=== PATIENT | female | born 1980 | race African-American/Black ===

== ENCOUNTER 2019-06-28 08:26 | Inpatient (IN) | payer OTHER ==
[2019-06-14 15:20] VITALS: BMI 38.0
[2019-06-28] MEDS ORDERED: MIDAZOLAM HCL 2 MG/2 ML SINGLE DOSE VIAL ONE (08:34)
[2019-06-28] MEDS ORDERED: BUPIVACAINE HCL/PF 0.5% (5 MG/ML) 30 ML VIAL IJ ONE (08:34)
[2019-06-28] MEDS ORDERED: DEXAMETHASONE SOD PHOSPHATE/PF 10 MG/ML SDV ONE (08:34)
[2019-06-28] MEDS ORDERED: BUPIVACAINE HCL/PF 2.5 MG/ML - 30 ML VIAL IJ ONE (08:41)
[2019-06-28] MEDS ORDERED: oxyCODONE HCL 5 MG TABLET PO PRN (08:46)
[2019-06-28] MEDS ORDERED: ONDANSETRON 4 MG/2 ML VIAL IVPUSH PRN ×2 (08:46→10:57)
[2019-06-28] MEDS ORDERED: PROMETHAZINE HCL 25 MG/1 ML VIAL IVPUSH PRN (08:46)
[2019-06-28] MEDS ORDERED: ROCURONIUM BROMIDE 50 MG/5 ML SYRINGE ONE (09:22)
[2019-06-28] MEDS ORDERED: PROPOFOL 20 ML ONE (09:22)
[2019-06-28] MEDS ORDERED: LIDOCAINE HCL/PF 2% SDV 5ML VIAL ONE (09:42)
[2019-06-28] MEDS ORDERED: SODIUM CHLORIDE 0.9% P/F 10 ML VIAL IJ ONE (09:53)
[2019-06-28] MEDS ORDERED: ceFAZolin SODIUM 1 GM VIAL ONE (09:53)
[2019-06-28] MEDS ORDERED: DEXAMETHASONE SOD PHOSPHATE 4 MG/1 ML VIAL ONE (09:56)
[2019-06-28] MEDS ORDERED: ONDANSETRON 4 MG/2 ML VIAL ONE (09:56)
[2019-06-28] MEDS ORDERED: BUPIVACAINE HCL/PF 0.25% (2.5MG/ML) 10 ML VIAL IJ ONE (10:50)
[2019-06-28] MEDS ORDERED: GLYCOPYRROLATE 0.2 MG/1 ML VIAL ONE (10:52)
[2019-06-28] MEDS ORDERED: NEOSTIGMINE METHYLSULFATE 0.5 MG/ML - 10 ML MDV ONE (10:53)
[2019-06-28] MEDS ORDERED: METOPROLOL TARTRATE 5 MG/5 ML VIAL ONE (10:54)
[2019-06-28] MEDS ORDERED: HYDROmorphone HCL CARPU-JECT 1 MG/1 ML DISP.SYRIN IM PRN (10:57)
[2019-06-28] MEDS ORDERED: METOCLOPRAMIDE HCL INJECTION 10 MG/2 ML VIAL IVPUSH SCH (11:00)
--- NOTE | 2019-06-28 11:03 | OP ---
Operative Note - Note: Operative Date: 06/28/19 Pre-Operative Diagnosis: Morbid Obesity. Sleep Apnea. Hypertension Operation: Laparoscopic Vertical Sleeve Gastrectomy. Laparoscopic Lysis of Adhesions. Diagnostic Laparoscopy Findings: Greater curve sleeve gastrectomy performed with #[address] Laparoscopic Lysis of adhesions performed Post-Operative Diagnosis: Same as Pre-op (Abdominal Adhesions) Surgeon: Terry Randolph [employer] Profiler: Delon Contreras Anesthesia: General Specimens Removed: Greater curve of stomach Estimated Blood Loss (mls): 30 Operative Report Dictated: Yes
[2019-06-28] MEDS ORDERED: FAMOTIDINE 20 MG/50 ML IVPB 20 MG/50 ML MG IVPB ONE (11:09)
[2019-06-28] MEDS ORDERED: FAMOTIDINE 20 MG PREMIXED IVPB IVPB ONE (11:10)
[2019-06-28] MEDS ORDERED: HYDROmorphone HCL CARPU-JECT 1 MG/1 ML DISP.SYRIN IVPB PRN (11:54)
[2019-06-28] MEDS: SODIUM CHLORIDE 1,000 ML IV SCH (12:00)
--- NOTE | 2019-06-28 12:08 | OP ---
DATE OF OPERATION: 06/28/2019 PREOPERATIVE DIAGNOSES: 1. Morbid obesity. 2. Sleep apnea. 3. Hypertension. POSTOPERATIVE DIAGNOSES: 1. Morbid obesity. 2. Sleep apnea. 3. Hypertension. 4. Abdominal adhesions. PROCEDURE PERFORMED: 1. Laparoscopic vertical sleeve gastrectomy. 2. Laparoscopic lysis of adhesions. 3. Diagnostic laparoscopy. OPERATING SURGEON: Terry Randolph MD CLINICAL FELLOW: Delon Contreras MD ANESTHESIA: General. EXPECTED BLOOD LOSS: 30 mL. DESCRIPTION OF PROCEDURE: Patient was brought into the operating room, placed on the OR table in supine position. All precautions were taken initially including padding for the back and the feet, and Venodyne boots were placed on both lower extremities. At that point, the abdomen was prepped and draped in the usual manner. A Veress needle was placed in the left upper quadrant, and a pneumoperitoneum was established. With an Optiview trocar, a No. 5 bladeless trocar under direct vision with the camera was placed into the left upper quadrant, and through that trocar, a laparoscopic camera was placed. Under direct vision, a No. 15 bladeless trocar was placed in the midline in the supraumbilical position followed by a No. 5 bladeless trocar in the right upper quadrant and No. 5 bladeless trocar below the left costal margin. There was noted to be an adhesion between the omentum and the anterior abdominal wall in the midline, and this was lysed with the LigaSure device, and that allowed the midline No. 15 trocar to be placed. Once all trocars were placed, a Lexus liver retractor was then placed in the epigastrium to retract the left lobe of the liver. The patient was then placed in a 20-degree reverse Trendelenburg position by anesthesia. There were noted to be adhesions from previous surgery between the undersurface of the liver and the anterior surface of the stomach. With the pier master assistant surgeon retracting the stomach inferiorly, the operating surgeon was able to lyse the adhesions with a laparoscopic scissor and sharp dissection until the entire anterior surface of the stomach was easily visible. At this point, the LigaSure was used to dissect the omentum, which had formed adhesions on the greater curvature and lysed the omentum off the greater curve until the entire greater curve was free from anterior to superior. At this juncture, anesthesia advanced a No. 36 bougie toward the distal stomach toward the pylorus. With the bougie held along the lesser curve, a series of nahomy were performed with the first 2 being black load nahomy 6 cm in length along the bougie. This was followed by a series of purple load nahomy also along the bougie 6 cm in length and continued until a final staple was fired in the left upper quadrant. The greater curve was now completely detached from the lesser curve. It should be noted that prior to firing each staple, both the anterior and posterior brock were checks that they were equal, and in the area of the esophagogastric junction, approximately 1 to 1/2 cm of serosa remained on the anterior and posterior surfaces. At this juncture, saline was placed around the staple line. Anesthesia inserted air in the bougie, which showed the entire stomach distended down to the pylorus. No obstruction and no leaks were noted. At that point, Surgicel was placed along the staple line in order to get further hemostasis, although there was no evidence of bleeding from the staple line. Also, the resected greater curve was now removed through the No. 15 trocar site in the midline, sent off the field as specimen to pathology. The No. 15 trocar site was then closed with endoclosure device to prevent internal hernia and to prevent bleeding. Under direct vision, all trocars were removed, and pneumoperitoneum was released. All trocar sites received 0.25% Marcaine. The midline was closed with 3-0 Vicryl in the subcutaneous tissue then all trocar sites were closed with 4-0 Biosyn in a subcuticular fashion. Dressings were applied. Patient awoken from anesthesia and transferred out of the operating room to the recovery room in stable condition. Roderick [id number]
[2019-06-28] MEDS: LACTATED RINGERS SOLUTION 1,000 ML IV SCH (17:05)
[2019-06-28] MEDS: METOCLOPRAMIDE HCL INJECTION 10 MG/2 ML VIAL IVPUSH SCH ×2 (17:32→22:59)
[2019-06-28] MEDS: FAMOTIDINE 20 MG/50 ML IVPB 20 MG/50 ML MG IVPB SCH (21:16)
[2019-06-28] MEDS: ENOXAPARIN NA (PORCINE) 40 MG/0.4 ML DISP.SYRIN SQ SCH (22:59)
[2019-06-29] MEDS: METOCLOPRAMIDE HCL INJECTION 10 MG/2 ML VIAL IVPUSH SCH ×2 (05:32→12:19)
[2019-06-29 08:09] LABS: ALBUMIN 3.4 g/dl (3.4-5.0); BILIRUBIN,TOTAL 0.7 mg/dl (0.2-1); CALCIUM 8.6 mg/dl (8.5-10); CREATININE 0.8 mg/dl (0.55-1.3); HEMATOCRIT 38.4 % (32.4-45.2); MCH 31.8 pg (25.7-33.7); MEAN CELL VOLUME 93.5 fl (80-96); MEAN PLT VOLUME 9.3 fl (7.5-11.1); PLATELET COUNT 261 K/MM3 (134-434); POTASSIUM 4.2 mmol/L (3.5-5.1); RDW 13.1 % (11.6-15.6); TOT PROT 6.1 g/dl (6.4-8.2); WHITE BLOOD COUNT 15.1 K/mm3 (4.0-10.8)
--- NOTE | 2019-06-29 08:20 | PN ---
Progress Note (short form) - Note Progress Note: 38F POD#1 for sleeve gastrectomy under GETA. This am pt. is doing well seen ambulating in jama. VSS. No anesthesia related complications. Pain well controlled. Continue management per primary team.
--- NOTE | 2019-06-29 09:27 | DS ---
Physical Exam: SUBJECTIVE: Patient seen and examined OBJECTIVE: Vital Signs Temperature 98.7 F 06/29/19 05:56 Pulse Rate 59 L 06/29/19 05:56 Respiratory Rate 18 06/29/19 05:56 Blood Pressure 142/65 06/29/19 05:56 O2 Sat by Pulse Oximetry (%) 100 06/29/19 08:35 PHYSICAL EXAM GENERAL: The patient is awake, alert, and fully oriented, in no acute distress. HEAD: Normal with no signs of trauma. EYES: PERRL, extraocular movements intact, sclera anicteric, conjunctiva clear. NECK: Trachea midline, full range of motion, supple. LUNGS: Breath sounds equal, clear to auscultation bilaterally, no wheezes, no crackles, no accessory muscle use. HEART: Regular rate and rhythm, S1, S2 without murmur, rub or gallop. ABDOMEN: Soft, mild diffuse tenderness, incisions clean no erythema or discharge nondistended, normoactive bowel sounds, no guarding, no rebound, no hepatosplenomegaly, no masses. EXTREMITIES: warm, well-perfused, no edema. NEUROLOGICAL: Cranial nerves II through XII grossly intact. Normal speech, gait not observed. PSYCH: Normal mood, normal affect. SKIN: Warm, dry, normal turgor, no rashes or lesions noted. LABS CBC,CMP WBC 15.1 K/mm3 (4.0-10.8) H 06/29/19 07:00 RBC 4.10 M/mm3 (3.60-5.2) 06/29/19 07:00 Hgb 13.0 GM/dl (10.7-15.3) 06/29/19 07:00 Hct 38.4 % (32.4-45.2) 06/29/19 07:00 MCV 93.5 fl (80-96) 06/29/19 07:00 MCH 31.8 pg (25.7-33.7) 06/29/19 07:00 MCHC 34.0 g/dl (32.0-36.0) 06/29/19 07:00 RDW 13.1 % (11.6-15.6) 06/29/19 07:00 Plt Count 261 K/MM3 (134-434) 06/29/19 07:00 MPV 9.3 fl (7.5-11.1) 06/29/19 07:00 Sodium 136 mmol/L (136-145) 06/29/19 07:00 Potassium 4.2 mmol/L (3.5-5.1) 06/29/19 07:00 Chloride 106 mmol/L (98-107) 06/29/19 07:00 Carbon Dioxide 23 mmol/L (21-32) 06/29/19 07:00 Anion Gap 7 MMOL/L (8-16) L 06/29/19 07:00 BUN 12.0 mg/dl (7-18) 06/29/19 07:00 Creatinine 0.8 mg/dl (0.55-1.3) 06/29/19 07:00 Est GFR (CKD-EPI)AfAm 109.93 06/29/19 07:00 Est GFR (CKD-EPI)NonAf 94.85 06/29/19 07:00 Random Glucose 109 mg/dl (74-106) H 06/29/19 07:00 Calcium 8.6 mg/dl (8.5-10) 06/29/19 07:00 Total Bilirubin 0.7 mg/dl (0.2-1) 06/29/19 07:00 AST 25 U/L (15-37) 06/29/19 07:00 ALT 23 U/L (13-61) 06/29/19 07:00 Alkaline Phosphatase 60 U/L (45-117) 06/29/19 07:00 Total Protein 6.1 g/dl (6.4-8.2) L 06/29/19 07:00 Albumin 3.4 g/dl (3.4-5.0) 06/29/19 07:00 HOSPITAL COURSE: Date of Admission:06/28/19 Date of Discharge: 06/29/19 HOSPITAL COURSE: The patient was admitted to the Med-Surg Unit after elective bariatric surgery. Now, s/p laparoscopic vertical sleeve gastrectomy. The day of surgery, the patient ambulated the hallways with assistance. The patient was monitored with remote tele/continuous pulse ox. Narcotic and non-narcotic pain management control was achieved with oral and IV pain control. Upper GI series was obtained the following morning and no leak, extravastion or gastric outlet obstruction. Started on a Bariatric Stage 1 diet and tolerated well. Padma-operative IV ABX were administered in addition to GI prophylaxis. DVT prophylaxis was achieved with SCDs and early ambulation. The discharge instructions and an oral pain management plan were reviewed with the patient. All questions answered. Above plan discussed with Dr. Gusman and agreed. Minutes to complete discharge: 20 Visit type - Case Type Case Type: Scheduled - Emergency Emergency Visit: No - New patient This patient is new to me today: Yes Date on this admission: 07/01/19 - Critical Care Critical Care patient: No
[2019-06-29] MEDS: LACTATED RINGERS SOLUTION 1,000 ML IV SCH (10:29)
[2019-06-29] MEDS: ENOXAPARIN NA (PORCINE) 40 MG/0.4 ML DISP.SYRIN SQ SCH (10:29)
[2019-06-29] MEDS: SODIUM CHLORIDE 1,000 ML IV SCH (10:29)
[2019-06-29] MEDS: FAMOTIDINE 20 MG/50 ML IVPB 20 MG/50 ML MG IVPB SCH (10:29)
[2019-06-29 13:34] VITALS: TEMP 98.8
[2019-06-29 14:08] VITALS: BP 154/74; PULSE 55
--- NOTE | 2019-06-29 15:52 | PN ---
Progress Note (short form) - Note Progress Note: POD#1 Afebrile;VSS Pt doing well No N/V Ambulating well P/E-all incisions clean, dry WBC-15.1 H/H-13/38.4 UGI- no leak, no obstruction P- Begin PO clear liquids- 2 oz PO TID D/C pt home F/U 07/08/2019
--- NOTE | 2019-07-01 13:04 | PATH ---
Surgical Pathology Report Patient Name: NIGEL KONG Med. Rec. #: [id number] /Age/Gender: 1980 (Age: 38) / F Account: [id number] Location: [facility] MED-[facility]URG Taken: 06/28/2019 Received: 06/28/2019 Reported: 07/01/2019 Physicians: Terry Randolph M.D. Specimen(s) Received GREATER CURVATURE OF STOMACH Clinical History Morbid obesity Final Diagnosis GREATER CURVATURE OF STOMACH, LAPAROSCOPIC GASTRIC SLEEVE EXCISION: PORTION OF STOMACH SHOWING MILD CHRONIC MUCOSAL INFLAMMATION. IMMUNOSTAIN IS NEGATIVE FOR H. PYLORI ORGANISMS. Electronically Signed Leeann Roman M.D. Gross Description Received in formalin, labeled "greater curvature, stomach," is 13.5 x 2.5 x 2 cm. portion of stomach with a stapled margin of resection. The serosa is lópez-hay with minimal attached fat. The mucosa is lópez-pink with normal folds. No mucosal masses are identified. Rotogravure Press Operator sections are submitted in one cassette.
== END 2019-06-29 16:21 | disposition home or self-care (01) | DRG 620 ==
LOC: FM/S 08:26
PROVIDERS: ADMIT Surgery; ATTEND Surgery
PROC: 0DNW4ZZ Release Peritoneum, Percutaneous Endoscopic Approach (ICD-10-PCS; 2019-06-28)
PROC: 0DJ04ZZ Inspection of Upper Intestinal Tract, Percutaneous Endoscopic Approach (ICD-10-PCS; 2019-06-28)
PROC: 0DB64Z3 Excision of Stomach, Percutaneous Endoscopic Approach, Vertical (ICD-10-PCS; principal; 2019-06-28 10:08)
DX: E66.01 Morbid (severe) obesity due to excess calories (principal); K56.50 Intestinal adhesions [bands], unspecified as to partial versus complete obstruction; Z68.38 Body mass index [BMI] 38.0-38.9, adult; I10 Essential (primary) hypertension; G47.30 Sleep apnea, unspecified
CPT/HCPCS: 36415; 74241-TC-FY; 80053; 84703; 85027; 87070; 94760; J7030